=== PATIENT | male | born 1990 | race Two or more races ===

== ENCOUNTER → 2022-01-16 | Outpatient (CLI) | payer OTHER ==
[~2022-01-16] MED LIST: ALLERGY MEDS; ATOM60; CETI5; CODACE30 PO; [UNRECOGNIZED DRUG - REMARK]
[2022-01-16 18:03] LABS: Microalb/Creat Ratio UR, Rand 5.455 mg/g (0.000-30.000)
== END | disposition home or self-care (01) ==
LOC: LAB 14:15 → LAB SHORT 14:15
PROVIDERS: Family Medicine
DX: Z00.00 Encounter for general adult medical examination without abnormal findings (principal)
CPT/HCPCS: 82043; 82570